=== PATIENT | female | born 1985 | race Two or more races ===

== ENCOUNTER 2022-08-04 18:44 | Emergency (ER) | payer MEDICAID, OTHER ==
[~2022-08-04] VITALS: Ht 162.6 cm; Wt 70.0 kg
[2022-08-04 23:35] VITALS: BP 104/69
== END 2022-08-04 23:38 | disposition home or self-care (01) ==
LOC: ER 18:47
DX: M54.16 Radiculopathy, lumbar region (principal)
CPT/HCPCS: 72100